=== PATIENT | male | born 2000 | race Caucasian/White ===

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

== ENCOUNTER 2024-12-16 19:04 | Emergency (ER) | payer SELFPAY ==
[2024-12-16 19:09] VITALS: BP 144/101; PULSE 103; RESP 18; O2SAT 100; BMI 23.6
--- OUTSIDE RECORDS SUMMARY | 2024-12-16 19:14 | XMS_ITS | Clinical Summary ---
Author Organization Healthcare Address [address] [place] [address] Care Team Providers Care Correctional Case Records Supervisor Name Role Phone Unavailable Primary Care Provider Unavailabl e Social History Tobacco Use Types Packs/Day Years Used Date Smoking Tobacco: Never Assessed Sex and Gender Information Value Date Recorded Sex Assigned at Not on file Legal Sex Male 5:59 PM EDT Gender Identity Not on file Sexual Orientation Not on file Last Filed Vital Signs Vital Sign Reading Time Taken Comments Blood Pressure - - Pulse - - Temperature - - Respiratory Rate - - Oxygen Saturation - - Inhaled Oxygen Concentration - - Weight 62.6 kg (138 lb 0.1 oz) 05/08/2016 12:38 PM EST Height 153.7 cm (5' 0.5 ) 05/08/2016 12:38 PM ES T Body Mass Index 26.51 05/08/2016 12:38 PM EST Plan of Treatment Not on file
--- NOTE | 2024-12-16 19:15 | XR_ITS ---
PROCEDURE INFORMATION: Exam: XR Chest Exam date and time: 12/16/2024 7:29 PM Age: 23 years old Clinical indication: Other: Syncope TECHNIQUE: Imaging protocol: Radiologic exam of the chest. Views: 1 view. COMPARISON: CR XR CHEST PORTABLE 01/20/2021 2:42 PM FINDINGS: Lungs: No consolidation. Pleural spaces: No pleural effusion. No pneumothorax. Heart/Mediastinum: No cardiomegaly. Bones/joints: Unremarkable. IMPRESSION: No acute findings.
--- NOTE | 2024-12-16 19:15 | CT_ITS ---
PROCEDURE INFORMATION: Exam: CT Head Without Contrast Exam date and time: 12/16/2024 7:29 PM Age: 23 years old Clinical indication: Other: Syncope TECHNIQUE: Imaging protocol: Computed tomography of the head without contrast. Radiation optimization: All CT scans at this facility use at least one of these dose optimization techniques: automated exposure control; mA and/or kV adjustment per patient size (includes targeted exams where dose is matched to clinical indication); or iterative reconstruction. COMPARISON: No relevant prior studies available. FINDINGS: Brain: No acute intracranial hemorrhage, midline shift, or mass effect. Cerebral ventricles: No ventriculomegaly. Paranasal sinuses: Visualized sinuses are unremarkable. No fluid levels. Mastoid air cells: Visualized mastoid air cells are well aerated. Bones: Unremarkable. No acute fracture. Soft tissues: Unremarkable. IMPRESSION: No acute intracranial findings.
--- NOTE | 2024-12-16 19:18 | HMH.EDGENADL ---
Discharge Plan Disposition Patient Disposition: Home, Self-Care Condition: Good Prescriptions Prescriptions: No Action fluticasone propionate [Allergy Relief (fluticasone)] 50 mcg/actuation spray,suspension 1 spray INTRANASAL QDAY 30 Days Qty: 9.9 0RF Rx Instructions: administer into each nostril loratadine 10 mg tablet,disintegrating 10 mg PO DAILY Qty: 30 0RF azithromycin 250 MG tablet 250 mg PO DIRECTED Qty: 6 0RF Rx Instructions: Take two (2) tablets on day #1, then one (1) tablet day #2 thru #5 methylprednisolone 4 MG tablet 4 mg PO DIRECTED Qty: 21 0RF Rx Instructions: Take as directed on package instructions Referrals Follow up/Referrals: Provider,Referral, MD [Primary Care Provider, Medical] - See instructions Activity Restrictions/Add. Instructions Additional Instructions/Restrictions: Continue to stay well-hydrated over the next 24 hours. Return to the emergency department for any acute or worsening symptoms. Clinical Impressions Clinical Impression: Intoxication Print Language Print Language: Greenlandic Discharge ED Provider: [facility] English Adult HPI General Chief complaint: Alcohol Stated complaint: Unresponsive Time Seen by Provider: 12/16/24 19:10 Mode of Arrival: EMS Source of Information: Patient and EMS Description of Symptoms (Recalled from ER Triage Doc. by RN): EMS brought patient after he was found unresponsive in the [facility] lot. EMS stated they sternal rubbed him with no response. Stated they gave narcan nd immediately the pt sat up and vomited. Pt denies any drug use but does say he had three shots of gabbi cam around 1500. Pt vitals are wnl upon arrival and he is a&o times 4. He is answering all questions appropriately and denies any symptoms at this time. History of Present Illness HPI narrative: Patient is a 23-year-old male who was found unresponsive at the [facility] lot. Patient was found by EMS. Patient was given Narcan by EMS. Patient states that he was drinking today last thing he remembers was driving home. Patient does not know how he got to the [facility]. Patient states that he had 3 shots of alcohol today. Patient denies any drug use. Patient states he does not use marijuana today but does use marijuana. Patient has no complaints at this time. Related Data Previous Rx's ?Medication ?Instructions ?Recorded fluticasone propionate 50 1 spray intranasal QDAY 30 days 02/20/19 mcg/actuation nasal #9.9 grams spray,suspension (Allergy Relief (fluticasone)) loratadine 10 mg disintegrating 10 mg PO DAILY #30 tabs 02/20/19 tablet azithromycin 250 mg tablet 250 mg PO DIRECTED #6 tabs 01/20/21 methylprednisolone 4 mg tablet 4 mg PO DIRECTED #21 tabs 01/20/21 Allergies Allergy/AdvReac Type Severity Reaction Status Date / Time No Known Allergies Allergy Verified 02/20/19 10:39 [facility] Disclaimer: The information contained in this section may have been updated after the patient was seen, as this information can be updated by other users. Social History Smoking Status: Current every day smoker alcohol intake: never substance use type: denies use current occupational status: student Travel in the last 8 weeks?: None household members: family housing: house Other Medical History Have you received the Flu Vaccine for this season: No Have you received the Pneumonia Vaccine: No ROS Obtained: Yes All systems reviewed & no additional complaints except as documented and Yes Systems reviewed as appropriate & no additional complaints except as documented Physical Exam General General appearance: alert and in no apparent distress Head Head exam: atraumatic, normocephalic and normal inspection Eye Eye exam: Present normal appearance, PERRL and EOMI; Absent scleral icterus ENT ENT exam: Present normal exam and normal external ear exam Neck Neck exam: Present normal inspection and full ROM Chest Chest inspection: Present normal inspection and symmetric chest wall rise Respiratory Respiratory exam: Present normal lung sounds bilaterally; Absent respiratory distress or wheezes Cardiovascular Cardiovascular exam: Present normal rhythm, tachycardia and normal heart sounds Abdominal Exam Abdominal exam: Present soft and distention; Absent tenderness, guarding or rebound Extremities Exam Extremities exam: Present normal inspection and full ROM Back Exam Back exam: Present normal inspection and full ROM Neurological Exam Neurological exam: Present alert and oriented X3 Psychiatric Psychiatric exam: Present normal affect and normal mood Skin Skin exam: Present warm and dry Medical Decision Making Medical Records Medical records reviewed: Yes I reviewed the patient's medical records. Screening: Per USPSTF and CDC recommendations, given the prevalence of disease in our region, it is our hospital?s policy to screen for HIV and viral Hepatitis for all patients aged 18 and over and those with ongoing risk factors. Nick Inquiry Pt receiving controlled substance: No Vital Signs: 12/16/24 19:09 12/16/24 21:00 12/16/24 21:28 Temperature Pulse Rate 70 70 Pulse Rate [Right] 103 H Respiratory Rate 18 Blood Pressure 117/76 126/71 Blood Pressure [Right Arm] 144/101 H Blood Pressure Mean 89 Blood Pressure Mean [Right Arm] 115 Blood Pressure Source Blood Pressure Source [Right Arm] Automatic Cuff Blood Pressure Position Blood Pressure Position [Right Arm] Sitting 02 Sat by Pulse Oximetry 100 97 97 Oxygen Delivery Method Room Air 12/16/24 22:13 Temperature 97.9 F Pulse Rate 79 Pulse Rate [Right] Respiratory Rate 18 Blood Pressure 123/79 Blood Pressure [Right Arm] Blood Pressure Mean Blood Pressure Mean [Right Arm] Blood Pressure Source Automatic Cuff Blood Pressure Source [Right Arm] Blood Pressure Position Sitting Blood Pressure Position [Right Arm] 02 Sat by Pulse Oximetry Oxygen Delivery Method Room Air Lab Data Lab results reviewed: Yes I reviewed the patient's lab results. Lab Results 12/16/24 19:07: WBC 6.6, RBC 4.69, Hgb 15.0, Hct 42.9, MCV 91.5, MCH 32.0 H, MCHC 35.0, RDW 11.5, Plt Count 270, MPV 9.8, Neut % (Auto) 69.7, Lymph % (Auto) 21.0, [place] % (Auto) 8.4, Eos % (Auto) 0.3, Baso % (Auto) 0.3, Neut # (Auto) 4.6, Lymph # (Auto) 1.4, [place] # (Auto) 0.6, Eos # (Auto) 0.0, Baso # (Auto) 0.0, D-Dimer 0.34, Sodium 140, Potassium 3.2 L, Chloride 105, Carbon Dioxide 23, Anion Gap 15.2 H, BUN 21 H, Creatinine 1.10, Estimated Creat Clear 109, Estimated GFR 85, Est GFR ( Amer) 102, Glucose 108 H, Calcium 9.5, Total Bilirubin 0.8, AST 47, ALT 32, Alkaline Phosphatase 52, Troponin I < 0.01, Total Protein 8.1, Albumin 4.9, Globulin 3.2, Albumin/Globulin Ratio 1.5, Plasma/Serum Alcohol 213 H 12/16/24 19:46: Urine Opiates Screen Negative, Urine Methadone Screen Negative, Ur Barbituates Screen Negative, Ur Phencyclidine Scrn Negative, Ur Amphetamines Screen Negative, U Benzodiazepines Scrn Negative, Urine Cocaine Screen Negative, U Marijuana (THC) Screen Positive H 12/16/24 21:51: Troponin I < 0.01 12/16/24 19:07 12/16/24 19:07 Orders (Tests/Meds): ED MEDICATIONS Discontinued Medications Generic Name Dose Route Start Last Admin Trade Name Freq PRN Reason Stop Dose Admin Sodium Chloride 1,000 mls @ 999 mls/hr 12/16/24 19:48 12/16/24 21:30 Sod Chlor 0.9% 1000ml Bag IV 12/16/24 20:48 Infused .Q1H1M ONE Infusion Potassium Chloride 40 meq 12/16/24 20:33 12/16/24 20:55 Potassium Chloride 20meq Tab PO 12/16/24 20:34 40 meq ONCE ONE Administration ORDERS Category Date Time Status CT head/brain wo con Stat Cat Scan 12/16/24 19:15 Completed CXR --portable [XR chest portable] Stat Exams 12/16/24 19:15 Completed CBC w/Auto Diff [Complete Blood Count Auto Diff] Stat Lab 12/16/24 19:07 Completed CMP [Comprehensive Metabolic Panel] Stat Lab 12/16/24 19:07 Completed D-Dimer Stat Lab 12/16/24 19:07 Completed Drug Screen,Urine Stat Lab 12/16/24 19:46 Completed Ethyl Alcohol Stat Lab 12/16/24 19:07 Completed Trop I [Troponin I] Stat Lab 12/16/24 19:07 Completed Troponin I Q3H Lab 12/16/24 21:51 Completed Medical Decision Narrative: Patient is an otherwise healthy 23-year-old male who presented to the emergency department from the [facility] after being found unresponsive. Patient was given Narcan by EMS. Patient did have improvement in his GCS. On arrival, patient was alert and oriented. Patient's vital signs were otherwise unremarkable. Differential includes but not limited to: Cranial pathology, ACS/ND, cardiac syncope, alcohol intoxication, drug overdose, pulmonary embolism, arrhythmia, amongst others. CBC was reviewed and interpreted by myself and showed no cytosis, hemoglobin was stable. D-dimer was normal. CMP was unremarkable. Initial troponin less than 0.01, second troponin less than 0.01. Urine drug screen positive for marijuana. Alcohol level 213. CT scan was reviewed and interpreted by myself and showed no acute intracranial pathology. EKG was reviewed and interpreted by myself and showed sinus tachycardia without acute ST or T wave changes concerning for ischemia. Patient was given IV fluids in the emergency department. Patient was metabolized. Patient was able to ambulate and p.o. without difficulties. Patient's mother came to pick the patient up and therefore I felt the patient was appropriate and stable for discharge home given his otherwise unremarkable workup. Patient was stable and appropriate for discharge home. Critical Care Critical Care Time Critical Care Time: No
[2024-12-16 19:22] LABS: Hematocrit 42.9 % (42.0-52.0); Hemoglobin 15.0 g/dL (14.1-18.0); Immature Granulocytes % 0.3 %; Mean Corpuscular HGB Conc 35.0 g/dL (31.8-35.4); Mean Corpuscular Hemoglobin 32.0 pg (27.0-31.2); Mean Corpuscular Volume 91.5 fl (80-94); Nucleated Red Blood Cells % 0 %; Platelet Count 270 K/mm3 (142-424); Red Blood Count 4.69 M/mm3 (4.60-6.20); Red Cell Distribution Width-SD 38.8 fL; White Blood Count 6.6 K/mm3 (4.8-10.8)
[2024-12-16 19:28] LABS: Alanine Aminotransferase 32 U/L (12-78); Albumin Level 4.9 g/dl (3.5-5.0); Albumin/Globulin Ratio 1.5 (1.1-1.8); Alkaline Phosphatase 52 U/L (38-126); Anion Gap 15.2 mEq/L (5-15); Aspartate Amino Transferase 47 U/L (17-59); Bilirubin,Total 0.8 mg/dl (0.2-1.3); Blood Urea Nitrogen 21 mg/dl (9-20); Calcium 9.5 mg/dl (8.4-10.2); Carbon Dioxide 23 mmol/L (22.0-30.0); Chloride 105 mmol/L (98-107); Creatinine Clearance Estimated 109 mL/min (50-200); Creatinine,Serum 1.10 mg/dl (0.66-1.25); Estimated Glomerular Filt Rate 85 ml/min (>60); GFR (African American) 102 ML/MIN (>60); Globulin 3.2 g/dL (1.3-3.2); Glucose 108 mg/dl (74-100); Potassium 3.2 mmoL/L (3.5-5.1); Sodium 140 mmol/L (136-145); Total Protein,Serum 8.1 g/dl (6.3-8.2)
--- NOTE | 2024-12-16 19:35 | ECG_ITS ---
APPROVED REPORT Exam: Resting ECG HR:63 bpm ECG Measurements Heart Rate 63 AXES IN 135 P 66 QRSd 101 QRS 85 QT 382 T 64 QTc 390 Conclusion SINUS RHYTHM WITH SINUS ARRHYTHMIA NORMAL ECG UNCONFIRMED REPORT Electronically signed by : DAT MATA, 12/17/2024 00:41:33
--- NOTE | 2024-12-16 19:41 | PC.NURSE ---
urinal given and asked to provide urine for testing.
[2024-12-16 19:44] LABS: Troponin I < 0.01 ng/ml (0.00-0.034)
[2024-12-16] MEDS: 0.9 % SODIUM CHLORIDE 1000ML 1,000 ML 999 ML IV (19:59)
[2024-12-16 20:06] LABS: Amphetamine/Metha Screen,Urine Negative ng/ml (<1000); Barbiturates Screen,Urine Negative ng/ml (<200)
[2024-12-16 20:07] LABS: Benzodiazepines Screen,Urine Negative ng/ml (<200)
[2024-12-16 20:09] LABS: Methadone Screen,Urine Negative ng/ml (<300); Opiate Screen,Urine Negative ng/ml (<300)
[2024-12-16 20:10] LABS: Phencyclidine Screen,Urine Negative ng/ml (<25)
[2024-12-16 20:27] LABS: D-Dimer 0.34 ug/mL (0.0-0.5)
[2024-12-16] MEDS: POTASSIUM CHLORIDE 20MEQ TAB 40 MEQ PO (20:55)
[2024-12-16 21:00] VITALS: BP 117/76; PULSE 70; O2SAT 97
[2024-12-16 21:28] VITALS: BP 126/71; PULSE 70; O2SAT 97
--- NOTE | 2024-12-16 21:46 | PC.NURSE ---
Pt ambulates around department with no troubles.
[2024-12-16 22:13] VITALS: BP 123/79; PULSE 79; RESP 18; TEMP 36.6; O2SAT 97
[2024-12-16 22:37] LABS: Troponin I < 0.01 ng/ml (0.00-0.034)
== END 2024-12-16 22:14 | disposition home or self-care (01) ==
PROVIDERS: Emergency Provider Student in an Organized Health Care Education/Training Program
DX: F10.929 Alcohol use, unspecified with intoxication, unspecified (principal); R00.0 Tachycardia, unspecified; F12.90 Cannabis use, unspecified, uncomplicated; R41.82 Altered mental status, unspecified; F17.290 Nicotine dependence, other tobacco product, uncomplicated; Y90.7 Blood alcohol level of 200-239 mg/100 ml
CPT/HCPCS: 70450; 71045; 80053; 80307; 80320; 84484; 85025; 85378; 93005; 96360; 99285; J7030

== ENCOUNTER 2025-04-03 15:52 | Emergency (ER) | payer SELFPAY ==
[2025-04-03 15:59] VITALS: BP 149/67; PULSE 88; RESP 18; TEMP 36.9; O2SAT 100; BMI 25.8
--- OUTSIDE RECORDS SUMMARY | 2025-04-03 16:01 | XMS_ITS | Clinical Summary ---
Author Organization Healthcare Address [address] [place] [address] Care Team Providers Care Facility Engineer Name Role Phone Unavailable Primary Care Provider [...]
--- NOTE | 2025-04-03 16:03 | XR_ITS ---
PROCEDURE INFORMATION: Exam: XR Right Hand Exam date and time: 04/03/2025 4:06 PM Age: 24 years old Clinical indication: Injury or trauma; Other: Punched a tree; Other: Pain; Additional info: Punched tree TECHNIQUE: Imaging protocol: Radiologic exam of the right hand. Views: 3 or more views. COMPARISON: No relevant prior studies available. FINDINGS: Bones/joints: Comminuted displaced fracture involving the proximal aspect of the ring finger metacarpal. Comminuted displaced fracture of the proximal aspect of the 5th metacarpal.. Soft tissues: Soft tissue swelling of the hand IMPRESSION: 1. Comminuted displaced fracture involving the proximal aspect of the ring finger metacarpal. 2. Comminuted displaced fracture of the proximal aspect of the 5th metacarpal..
--- NOTE | 2025-04-03 16:25 | ED_ITS ---
<Statement entered by Aaron Moody MD - 04/04/25 11:21> Aaron Moody MD: I was consulted by the MICHEAL, and we discussed the complexity of the problems being addressed. I approve the treatment and management plan for this patient's care in the emergency department, thus performing a substantive portion of the medical decision making. Patient's imaging was interpreted by me personally. Patient has comminuted and displaced fractures of the proximal 4th and 5th metacarpals. Patient was consented for ulnar nerve block and manual reduction of his closed fractures. Ultrasound guidance was used to perform a nerve block and 10 mL of lidocaine was administered. Adequate anesthesia was obtained. Patient was placed in finger traps and manual reduction of the patient's fractures was performed. Post reduction x-rays showed improved alignment of patient's fractures. As stated above, discussions were had again with Dr. Bell's who recommended ulnar gutter splint and outpatient follow-up. Patient was placed in ulnar gutter splint and was instructed to call Dr. Bell's office early next week for follow-up. Will prescribe course of oxycodone for severe pain. Return precautions were given. All questions were answered. He demonstrated understanding and was in agreement this plan. He was then discharged from the emergency department in stable condition. Discharge Plan Disposition Patient Disposition: Home, Self-Care Condition: Good Prescriptions Prescriptions: New oxycodone 5 mg tablet 5 mg PO Q6H PRN (Reason: pain) Qty: 12 0RF No Action fluticasone propionate [Allergy Relief (fluticasone)] 50 mcg/actuation spray,suspension 1 spray INTRANASAL QDAY 30 Days Qty: 9.9 0RF Rx Instructions: administer into each nostril loratadine 10 mg tablet,disintegrating 10 mg PO DAILY Qty: 30 0RF azithromycin 250 MG tablet 250 mg PO DIRECTED Qty: 6 0RF Rx Instructions: Take two (2) tablets on day #1, then one (1) tablet day #2 thru #5 methylprednisolone 4 MG tablet 4 mg PO DIRECTED Qty: 21 0RF Rx Instructions: Take as directed on package instructions Referrals Follow up/Referrals: Morris Bell DO [Staff Physician, Orthopedics] - See instructions Provider,Referral, MD [Primary Care Provider, Medical] - See instructions Activity Restrictions/Add. Instructions Additional Instructions/Restrictions: Call Dr. Bell's office on Saturday for an appointment Rest Elevate Splint in place Tylenol Motrin as needed for pain Symptoms worsen or do not improve return Clinical Impressions Clinical Impression: Closed hand fracture Qualifiers: Encounter type: initial encounter Laterality: right Qualified Code(s): S62.91XA - Unspecified fracture of right hand, initial encounter for closed fracture Instructions Patient Instructions: DI for a Hand Fracture Print Language Print Language: Malay Discharge ED Provider: Aaron Moody General Adult HPI <Michael Randhawa ([facility]), [employer] - Last Filed: 04/03/25 17:52> General Chief complaint: Extremity Injury, Upper Stated complaint: object fell on hand lacerations Time Seen by Provider: 04/03/25 16:03 Mode of Arrival: Ambulatory Source of Information: Patient Description of Symptoms (Recalled from ER Triage Doc. by RN): Patient reports working on his car when he got frustrated and punched a tree. Right hand swelling, pain, and bruising. History of Present Illness HPI narrative: 24-year-old male presents for right hand pain, swelling and bruising after getting frustrated while working on his car and punched a tree. Related Data Previous Rx's ?Medication ?Instructions ?Recorded fluticasone propionate 50 1 spray intranasal QDAY 30 d ays 02/20/19 mcg/actuation nasal #9.9 grams spray,suspension (Allergy Relief (fluticasone)) loratadine 10 mg disintegrating 10 mg PO DAILY #30 tab s 02/20/19 tablet azithromycin 250 mg tablet 250 mg PO DIRECTED #6 ta bs 01/20/21 methylprednisolone 4 mg tablet 4 mg PO DIRECTED #21 tabs 01/20/21 oxycodone 5 mg tablet 5 mg PO Q6H PRN pain #12 tab s 04/03/25 Allergies Allergy/AdvReac Type Severity Reaction Status Date / Time No Known Allergies Allergy Verified 02/20/19 10:39 PFSH <Michael Randhawa ([facility]), [employer] - Last Filed: 04/03/25 17:52> [facility] Disclaimer: The information contained in this section may have been updated after the patient was seen, as this information can be updated by other users. Social History Smoking Status: Current every day smoker alcohol intake: never substance use type: denies use current occupational status: student Travel in the last 8 weeks?: None household members: family housing: house Have you lived/traveled outside [place] in past 30 days?: No Contact w/someone who lives/traveled outside [place] past 30 days?: No Exposure to someone with infectious disease in past 14 days?: No Do you have a fever (greater than 100.4 F or 38 C)?: No Have you tested positive for COVID-19?: No Exposed to someone with COVID-19 in past 14 days?: No Do you have a sore throat?: No Do you have a cough?: No Do you have any weakness?: No Do you have any diarrhea?: No Are you experiencing any unusual bleeding?: Yes Do you have any muscle aches/pain?: No Do you have any abdominal pain?: No Are you experiencing loss of taste or smell?: No Other Medical History Have you received the Flu Vaccine for this season: No Have you received the Pneumonia Vaccine: No <Michael Randhawa ([facility]), [employer] - Last Filed: 04/03/25 17:52> ROS Obtained: Yes Systems reviewed as appropriate & no additional complaints except as documented Musculoskeletal Musculoskeletal: Reports system reviewed and no additional complaints, except as documented, Reports as per HPI, Reports deformity, Reports joint swelling and Reports limited range of motion Physical Exam <Michael Randhawa ([facility]), [employer] - Last Filed: 04/03/25 17:52> General General appearance: alert and in no apparent distress Eye Eye exam: Present normal appearance and PERRL ENT ENT exam: Present normal exam Respiratory Respiratory exam: Present normal lung sounds bilaterally Cardiovascular Cardiovascular exam: Present regular rate and normal rhythm Expanded Upper Extremity Exam Right: Hand exam: Present tenderness, swelling, abrasion and ecchymosis Hand L/R back image: 2 1. Swelling and bruising 2. Multiple abrasions 3. Abrasion 4. Multiple abrasions Neurological Exam Neurological exam: Present alert and oriented X3 Skin Skin exam: Present warm and intact Medical Decision Making <Michael Randhawa ([facility]), [employer] - Last Filed: 04/03/25 17:52> Medical Records Medical records reviewed: Yes I reviewed the patient's medical records. Screening: Per USPSTF and CDC recommendations, given the prevalence of disease in our region, it is our hospital?s policy to screen for HIV and viral Hepatitis for all patients aged 18 and over and those with ongoing risk factors. Nick Inquiry Pt receiving controlled substance: No Vital Signs: 04/03/25 15:59 04/03/25 18:16 Temperature 98.4 F 98 F Temperature Source Oral Pulse Rate 80 Pulse Rate [Radial] 88 Respiratory Rate 18 20 Blood Pressure 138/79 Blood Pressure [Right Arm] 149/67 H Blood Pressure Mean [Right Arm] 94 Blood Pressure Source [Right Arm] Automatic Cuff Blood Pressure Position [Right Arm] Sitting 02 Sat by Pulse Oximetry 100 Oxygen Delivery Method Room Air Room Air Lab Data Lab results reviewed: Yes I reviewed the patient's lab results. Orders (Tests/Meds): ED MEDICATIONS Discontinued Medications Generic Name Dose Route Start Last Admin Trade Name Freq PRN Reason Stop Dose Admin Lidocaine HCl 20 ml 04/03/25 16:33 04/03/25 16:41 Lidocaine 1% 20ml Mdv IJ 04/03/25 16:34 20 ml ONCE ONE Administration ORDERS Category Date Time Status Hand XR right minimum 3 views [XR hand RT min 3V] Stat Exams 04/03/25 16:03 Completed Hand XR right minimum 3 views [XR hand RT min 3V] Stat Exams 04/03/25 17:06 Completed Radiology Data #1: Image(s): Hand Image Reviewed: Yes I reviewed the patient's radiology image Preliminary Findings: Abnormal (Fracture 4th and 5th) Physician Consults Physician Consulted: Dr bell Time: 16:26 Reason -: Orthopedic Eval/Care Comment/Response: Reduction follow-up in office Additional Consult: [email or web address] Time: 17:46 Reason -: Orthopedic Eval/Care Comment/Response: post reduction-ulnar gutter splint and follow-up in clinic next week Medical Decision Narrative: In summary patient is a 24-year-old male who presents to the emergency department for evaluation of hand pain. Patient is hemodynamically stable upon arrival, afebrile. Deformity noted to the right fifth medic carpal with bruising. Differential diagnosis includes fracture, contusion, abrasions,. Initial workup will be conducted with x-ray. Initial inventions include reduction of fracture. Initial workup reviewed by me hand [id number] displaced fracture involving the proximal aspect of the ring finger metacarpal. Comminuted displaced fracture of the proximal aspect of the 5th metacarpal. Post [id number] -improved upon repeat evaluation after reduction swelling is improved patient tolerated well. Given this patient appropriate for discharge at this time will discharge home and follow-up with Dr. Bell call office on Saturday <Aaron Moody MD - Last Filed: 04/04/25 11:21> Vital Signs: 04/03/25 15:59 04/03/25 18:16 Temperature 98.4 F 98 F Temperature Source Oral Pulse Rate 80 Pulse Rate [Radial] 88 Respiratory Rate 18 20 Blood Pressure 138/79 Blood Pressure [Right Arm] 149/67 H Blood Pressure Mean [Right Arm] 94 Blood Pressure Source [Right Arm] Automatic Cuff Blood Pressure Position [Right Arm] Sitting 02 Sat by Pulse Oximetry 100 Oxygen Delivery Method Room Air Room Air Orders (Tests/Meds): ED MEDICATIONS Discontinued Medications Generic Name Dose Route Start Last Admin Trade Name Freq PRN Reason Stop Dose Admin Lidocaine HCl 20 ml 04/03/25 16:33 04/03/25 16:41 Lidocaine 1% 20ml Mdv IJ 04/03/25 16:34 20 ml ONCE ONE Administration ORDERS Category Date Time Status Hand XR right minimum 3 views [XR hand RT min 3V] Stat Exams 04/03/25 16:03 Completed Hand XR right minimum 3 views [XR hand RT min 3V] Stat Exams 04/03/25 17:06 Completed Procedures <Aaron Moody MD - Last Filed: 04/04/25 11:21> Nerve Block Nerve Block 1: Time out performed: Yes Local Anesthetic: lidocaine 1% Amount of anesthesia used (mL): 10 Side: Right Nerve Blocks: ulnar Procedure Successful: Yes Patient Tolerated Procedure: well Complications: none Orthopedic Fracture Reduction Fracture #1: Time Out Performed: Yes Side: right Fracture Reduction Location: metacarpal Analgesia: nerve block (ulnar nerve block using ultrasound guidance) Technique: direct manipulation, traction/counter-traction and finger traps Post Reduction X-rays Demonstrate: acceptable reduction Post-reduction neuro exam: intact Post-reduction vascular exam: intact Splint Applied: Yes Patient Tolerated Procedure: well Orthopedic Splinting/Casting Injury #1: Side: right Upper Extremity Injury Location: hand Upper Extremity Immobilizer: ulnar gutter Post Cast/Splinting Neuro Status: intact Post Cast/Splinting Vasc Status: intact Critical Care <Michael Randhawa ([facility]), [employer] - Last Filed: 04/03/25 17:52> Critical Care Time Critical Care Time: No
[2025-04-03] MEDS: LIDOCAINE 1% 20ML MDV 20 ML IJ (16:41)
--- NOTE | 2025-04-03 17:06 | XR_ITS ---
PROCEDURE INFORMATION: Exam: XR Right Hand Exam date and time: 04/03/2025 5:40 PM Age: 24 years old Clinical indication: Other: Post reduction; Additional info: Post reductions TECHNIQUE: Imaging protocol: Radiologic exam of the right hand. Views: 3 or more views. COMPARISON: CR XR HAND RT MIN 3V 04/03/2025 4:06 PM FINDINGS: Bones/joints: Reduced mildly comminuted fracture of the 4th and 5th metacarpal bases. Soft tissues: Moderate soft tissue swelling on the hand. IMPRESSION: Reduced mildly comminuted fracture of the 4th and 5th metacarpal bases.
[2025-04-03 18:16] VITALS: BP 138/79; PULSE 80; RESP 20; TEMP 36.6; O2SAT 99
== END 2025-04-03 18:17 | disposition home or self-care (01) ==
PROVIDERS: Emergency Provider Student in an Organized Health Care Education/Training Program
DX: S62.614A Displaced fracture of proximal phalanx of right ring finger, initial encounter for closed fracture (principal); S62.326A Displaced fracture of shaft of fifth metacarpal bone, right hand, initial encounter for closed fracture; W22.8XXA Striking against or struck by other objects, initial encounter
CPT/HCPCS: 29125; 73130; 99283; J2003